=== PATIENT | female | born 1970 | race Caucasian/White ===

== ENCOUNTER 2023-06-30 15:19 | Emergency (ER) | payer MEDICAID ==
[~2023-06-30] VITALS: Ht 157.5 cm; Wt 90.9 kg
[2023-06-30 15:25] VITALS: BP 146/74; PULSE 107; TEMP 98; O2SAT 98
[2023-06-30] MEDS ORDERED: HYDR-3964 PO ×2 (16:53→17:04)
[2023-06-30] MEDS ORDERED: LIDO700A47 TOP (16:53)
[2023-06-30 17:06] VITALS: RESP 18
[2023-06-30] MEDS: HYDROcodone/acetaminophen 5mg/325mg tablet PO ONE (17:06)
[2023-06-30] MEDS: LIDOcaine 5% patch TP SCH (17:06)
== END 2023-06-30 17:13 | disposition home or self-care (01) ==
LOC: EDBD 15:19 → ER 15:19
DX: R07.81 Pleurodynia (principal); I50.9 Heart failure, unspecified; J44.9 Chronic obstructive pulmonary disease, unspecified
CPT/HCPCS: 71100; 99283